=== PATIENT | male | born 1950 | race Two or more races ===

== ENCOUNTER 2024-01-07 18:04 | Emergency (ER) | payer MEDICARE, OTHER ==
[~2024-01-07] VITALS: Ht 152.4 cm; Wt 72.6 kg
[2024-01-07 19:00] VITALS: BP 150/101; TEMP 98.8; O2SAT 93
== END 2024-01-07 18:45 | disposition home or self-care (01) ==
LOC: ER 18:04
DX: J98.01 Acute bronchospasm (principal); Z88.6 Allergy status to analgesic agent; Z86.79 Personal history of other diseases of the circulatory system
CPT/HCPCS: A4606; A4663